=== PATIENT | male | born 1985 | race Caucasian/White ===

== ENCOUNTER 2017-11-03 10:21 | Outpatient (CLI) | payer OTHER ==
[2017-11-03 10:36] LABS: BASOPHILS % 0.7 (0.0-1.5); EOSINOPHILS % 2.8 % (0.0-6.8); MEAN CORPUSCULAR VOLUME 87.3 fl (80.0-100.0); MONOCYTES % 6.4 % (0.0-11.0); NEUTROPHILS # 3.4 # k/uL (1.4-7.7)
[2017-11-03 11:01] LABS: eGFR (African) > 60; eGFR (Non-African) > 60
== END 2017-11-03 14:11 ==
LOC: LAB 10:21
PROVIDERS: ATTEND General Practice
DX: R10.9 Unspecified abdominal pain (principal)
CPT/HCPCS: 80053; 85025